=== PATIENT | male | born 1965 | race Caucasian/White ===

== ENCOUNTER 2017-04-17 14:33 | Inpatient (IN) | payer OTHER ==
--- NOTE | 2017-04-17 14:55 | PDOC ---
Rapid Medical Evaluation Time Seen by Provider: 04/17/17 14:51 Medical Evaluation: Allergies Allergy/AdvReac Type Severity Reaction Status Date / Time No Known Allergies Allergy Verified 04/17/17 14:51 04/17/17 14:51 I have performed a brief in-person evaluation of this patient. The patient presents with a chief complaint of: Possible cellulitis to RUE, started on keflex yesterday, took 2 doses. Developed fever today and sent in by his pmd. No trauma. bite PMD: Dr Chiang Pertinent physical exam findings: Febrile to 100 w/ minimal erythema to posterior elbow and medical aspect radiating to arm I have ordered the following:labs The patient will proceed to the ED for further evaluation. Discharge Disposition - Referrals Referrals: Edilma Chiang MD [Primary Care Provider] - - Patient Instructions - Post Discharge Activity
[2017-04-17 15:15] LABS: BASO % 0.3 % (0-2.0); EOS % 1.4 % (0-4.5); HEMATOCRIT 43.1 % (35.4-49); HEMOGLOBIN 14.8 GM/dL (11.7-16.9); LYMPH % 4.9 % (8-40); MCH 29.3 pg (25.7-33.7); MCHC 34.3 g/dl (32.0-35.9); MEAN CELL VOLUME 85.3 fl (80-96); MEAN PLT VOLUME 6.8 fl (7.5-11.1); MONO % 3.7 % (3.8-10.2); NEUT % 89.7 % (42.8-82.8); PLATELET COUNT 315 K/MM3 (134-434); RBC 5.06 M/mm3 (4.00-5.60); WHITE BLOOD COUNT 10.3 K/mm3 (4.0-10.0)
[2017-04-17 15:44] LABS: ALBUMIN 3.6 g/dl (3.4-5.0); ALK PHOS 77 U/L (45-117); ANION GAP 10 (8-16); BILIRUBIN,TOTAL 0.8 mg/dL (0.2-1.0); BLOOD UREA NITROGEN 14 mg/dL (7-18); CALCIUM 8.2 mg/dL (8.5-10.1); CHLORIDE 103 mmol/L (98-107); CO2 23 mmol/L (21-32); CREATININE 1.1 mg/dL (0.7-1.3); GLUCOSE,RANDOM 154 mg/dL (74-106); POTASSIUM 3.7 mmol/L (3.5-5.1); SGOT/AST 15 U/L (15-37); SGPT/ALT 39 U/L (12-78); SODIUM 136 mmol/L (136-145); TOT PROT 7.4 g/dl (6.4-8.2)
[2017-04-17] MEDS ORDERED: CLINDAMYCIN 600MG PREMIX IVPB 600 MG/50 ML BAG IVPB ONE ×2 (17:33→18:34)
--- NOTE | 2017-04-17 18:42 | PDOC ---
History of Present Illness <Marie Flynn - Last Filed: 04/17/17 18:38> - General History Source: Patient Exam Limitations: No Limitations - History of Present Illness Initial Comments: 04/17/17 18:43 Patient is a 50 year old male with a significant past medical history of HTN, Diabetes who presents to the ED with complaints of right forearm pain and swelling that began 2 weeks ago. Patient reports experiencing right forearm swelling and pain 2 weeks ago that he stated started small so i applied ice and took advil. He reports right forearm edema and pain subsided but returned more intense 2 days ago. Patient reports going to PCP office yesterday for same symptoms and was prescribed Cephalexin, but states it made him vomit twice. He states pcp referred him to the ED to get IV antibiotics since he was not tolerating PO. Denies chest pain, SOB. Denies nausea, vomiting. Denies fevers, chills. Denies contact with sick individuals, out of state travel. Denies trauma to affected area. Denies any other symptoms. Allergies: None Social history: No smoking. Social drinker. No illicit drugs. Surgical history: PMD: Dr. Chiang <Ravinder Fox - Last Filed: 04/17/17 18:44> - General Chief Complaint: Redness To Affected Area Stated Complaint: Wound Infection Time Seen by Provider: 04/17/17 14:51 Past History - Past Medical History COPD: No HTN: Yes - Suicide/Smoking/Psychosocial Hx Smoking History: Never smoked Hx Alcohol Use: Yes (socially.) Drug/Substance Use Hx: No Substance Use Type: Alcohol <Marie Flynn - Last Filed: 04/17/17 18:38> <Ravinder Fox - Last Filed: 04/17/17 18:44> - Past Medical History Allergies/Adverse Reactions: Allergies Allergy/AdvReac Type Severity Reaction Status Date / Time No Known Allergies Allergy Verified 04/17/17 14:51 Home Medications: Ambulatory Orders Alprazolam [Xanax] 0.5 mg PO BID PRN #6 tablet 05/28/14 Review of Systems - Review of Systems Able to Perform ROS?: Yes Comments:: 04/17/17 18:44 GENERAL/CONSTITUTIONAL: No fever or chills. No weakness. HEAD, EYES, EARS, NOSE AND THROAT: No change in vision. No ear pain or discharge. No sore throat. CARDIOVASCULAR: No chest pain or shortness of breath. RESPIRATORY: No cough, wheezing, or hemoptysis. GASTROINTESTINAL: No nausea, vomiting, diarrhea or constipation. GENITOURINARY: No dysuria, frequency, or change in urination. MUSCULOSKELETAL: No joint or muscle swelling or pain. No neck or back pain. SKIN: No rash NEUROLOGIC: No headache, vertigo, loss of consciousness, or change in strength/ sensation. ENDOCRINE: No increased thirst. No abnormal weight change. HEMATOLOGIC/LYMPHATIC: No anemia, easy bleeding, or history of blood clots. ALLERGIC/IMMUNOLOGIC: No hives or skin allergy. All Other Systems: Reviewed and Negative <Ravinder Fox - Last Filed: 04/17/17 18:44> *Physical Exam - Vital Signs Last Vital Signs Temp Pulse Resp BP Pulse Ox 101.1 F H 108 H 18 139/84 99 04/17/17 14:50 04/17/17 14:50 04/17/17 14:50 04/17/17 14:50 04/17/17 14:50 <Marie Flynn - Last Filed: 04/17/17 18:38> - Vital Signs Last Vital Signs Temp Pulse Resp BP Pulse Ox 101.1 F H 108 H 18 139/84 99 04/17/17 14:50 04/17/17 14:50 04/17/17 14:50 04/17/17 14:50 04/17/17 14:50 - Physical Exam Comments: 04/17/17 18:44 GENERAL: Awake, alert, and fully oriented, in no acute distress HEAD: No signs of trauma EYES: PERRLA, EOMI, sclera anicteric, conjunctiva clear ENT: Auricles normal inspection, hearing grossly normal, nares patent, oropharynx clear without exudates. Moist mucosa NECK: Normal ROM, supple, no lymphadenopathy, JVD, or masses LUNGS: Breath sounds equal, clear to auscultation bilaterally. No wheezes, and no crackles HEART: Regular rate and rhythm, normal S1 and S2, no murmurs, rubs or gallops ABDOMEN: Soft, nontender, normoactive bowel sounds. No guarding, no rebound. No masses EXTREMITIES: +Asymmetric Forearm. +Right forearm red with area of point tenderness. +Mild erythema. Normal range of motion, no edema. No clubbing or cyanosis. No cords, erythema, or tenderness NEUROLOGICAL: Cranial nerves II through XII grossly intact. Normal speech, normal gait SKIN: Warm, Dry, normal turgor, no rashes or lesions noted. <RuddyRavinder - Last Filed: 04/17/17 18:44> ED Treatment Course - LABORATORY CBC & Chemistry Diagram: 04/17/17 15:10 04/17/17 15:10 - ADDITIONAL ORDERS Additional order review: Laboratory Results 04/17/17 15:10 Sodium 136 Potassium 3.7 Chloride 103 Carbon Dioxide 23 Anion Gap 10 BUN 14 Creatinine 1.1 Creat Clearance w eGFR > 60 Random Glucose 154 H Calcium 8.2 L Total Bilirubin 0.8 AST 15 ALT 39 Alkaline Phosphatase 77 Total Protein 7.4 Albumin 3.6 04/17/17 15:10 RBC 5.06 MCV 85.3 MCHC 34.3 RDW 14.0 MPV 6.8 L Neutrophils % 89.7 H Lymphocytes % 4.9 L Monocytes % 3.7 L Eosinophils % 1.4 Basophils % 0.3 - RADIOLOGY Radiology Studies Ordered: Category Date Time Status DUPLEX VASCUL US-1 ARM [US] Stat Ultrasound 04/17/17 18:18 Ordered <Marie Flynn - Last Filed: 04/17/17 18:38> - LABORATORY CBC & Chemistry Diagram: 04/17/17 15:10 04/17/17 15:10 - ADDITIONAL ORDERS Additional order review: Laboratory Results 04/17/17 15:10 Sodium 136 Potassium 3.7 Chloride 103 Carbon Dioxide 23 Anion Gap 10 BUN 14 Creatinine 1.1 Creat Clearance w eGFR > 60 Random Glucose 154 H Calcium 8.2 L Total Bilirubin 0.8 AST 15 ALT 39 Alkaline Phosphatase 77 Total Protein 7.4 Albumin 3.6 04/17/17 15:10 RBC 5.06 MCV 85.3 MCHC 34.3 RDW 14.0 MPV 6.8 L Neutrophils % 89.7 H Lymphocytes % 4.9 L Monocytes % 3.7 L Eosinophils % 1.4 Basophils % 0.3 - Medications Given in the ED: ED Medications Discontinued Medications Generic Name Dose Route Start Last Admin Trade Name Freq PRN Reason Stop Dose Admin Clindamycin Phosphate 600 mg in 50 mls @ 100 mls/hr 04/17/17 17:33 04/17/17 18:42 Cleocin 600 Mg Premix Ivpb - IVPB 04/17/17 18:02 100 mls/hr ONCE ONE Administration <Ravinder Fox - Last Filed: 04/17/17 18:44> Medical Decision Making - Medical Decision Making 04/17/17 18:38 Pt presents to the ED complaining of RLE erythema and swelling accompanied by fever, nausea and vomiting. Given that he has failed outpatient antibiotics, I feel that he needs to be admitted for IV antibiotics. Labs and vitals are inconsistent with sepsis. Will check lactate and blood CX. Given that his forearms are asymmetric, I am concerned for abscess or infected DVT--no signs of abscess on my bedside US, but will check official US. <Marie Flynn - Last Filed: 04/17/17 18:38> *DC/Admit/Observation/Transfer - Discharge Dispostion Admit: Yes <Marie Flynn - Last Filed: 04/17/17 18:38> - Attestations Scribe Attestion: 04/17/17 18:44 Documentation prepared by Ravinder Fox, acting as emergency medical tech for Marie Flynn MD, MD/DO. <Ravinder Fox - Last Filed: 04/17/17 18:44> Diagnosis at time of Disposition: Cellulitis Qualifiers: Site of cellulitis: extremity Site of cellulitis of extremity: upper extremity Laterality: right Qualified Code(s): L03.113 - Cellulitis of right upper limb - Discharge Dispostion Condition at time of disposition: Good - Referrals Referrals: Edilma Chiang MD [Primary Care Provider] - - Patient Instructions - Post Discharge Activity
--- NOTE | 2017-04-17 20:05 | HP ---
CHIEF COMPLAINT: Right forearm cellulitis HISTORY OF PRESENT ILLNESS 50 year-old male with a PMH significant for HTN and NIDDM. Presents to the ED with right forearm pain and swelling that began two weeks ago. Patient initially self-treated with ice and Advil and the symptoms subsided. He did not notice any break in the skin, bites, or excoriations at the time. Two days ago the pain returned and was more intense. He went to see his PCP Dr. Chiang who prescribed cephalexin but the medication made him vomit twice. Patient returned to Dr. Chiang's office today and had a fever of 102. Dr. Chiang sent him to the ED. PMD: Dr. Chiang ER course was notable for: (1) T 101.1, pulse 108 (2) Clinda x 1 Recent Travel: No PAST MEDICAL HISTORY: Hypertension NIDDM PAST SURGICAL HISTORY: None reported Social History: Smoking: no Alcohol: social Drugs: no Family History: mother 86 "natural causes"; father 86 of lung cancer; sibling a&w; childlren a&w Allergies No Known Allergies Allergy (Verified 04/17/17 14:51) HOME MEDICATIONS: Home Medications Medication Instructions Recorded Atorvastatin Ca [Lipitor] 40 mg PO HS 04/17/17 Icosapent Ethyl [Vascepa] 1 gm PO BID 04/17/17 Metformin HCl 500 mg PO BID 04/17/17 Valsartan 160 mg PO DAILY 04/17/17 REVIEW OF SYSTEMS CONSTITUTIONAL: +ffever Absent: chills, diaphoresis, generalized weakness, malaise, loss of appetite, weight change HEENT: Absent: rhinorrhea, nasal congestion, throat pain, throat swelling, difficulty swallowing, mouth swelling, ear pain, eye pain, visual changes CARDIOVASCULAR: Absent: chest pain, syncope, palpitations, irregular heart rate, lightheadedness , peripheral edema RESPIRATORY: Absent: cough, shortness of breath, dyspnea with exertion, orthopnea, wheezing, stridor, hemoptysis GASTROINTESTINAL: Absent: abdominal pain, abdominal distension, nausea, vomiting, diarrhea, constipation, melena, hematochezia GENITOURINARY: Absent: dysuria, frequency, urgency, hesitancy, hematuria, flank pain, genital pain MUSCULOSKELETAL: +right forearm pain, erythema, swelling Absent: myalgia, arthralgia, joint swelling, back pain, neck pain SKIN: Absent: rash, itching, pallor HEMATOLOGIC/IMMUNOLOGIC: Absent: easy bleeding, easy bruising, lymphadenopathy, frequent infections ENDOCRINE: Absent: unexplained weight gain, unexplained weight loss, heat intolerance, cold intolerance NEUROLOGIC: Absent: headache, focal weakness or paresthesias, dizziness, unsteady gait, seizure, mental status changes, bladder or bowel incontinence PSYCHIATRIC: Absent: anxiety, depression, suicidal or homicidal ideation, hallucinations. PHYSICAL EXAMINATION Vital Signs - 24 hr 04/17/17 14:50 Temperature 101.1 F H Pulse Rate 108 H Respiratory 18 Rate Blood Pressure 139/84 O2 Sat by Pulse 99 Oximetry (%) GENERAL: Awake, alert, and fully oriented, in no acute distress. HEAD: Normal with no signs of trauma. EYES: Pupils equal, round and reactive to light, extraocular movements intact, sclera anicteric, conjunctiva clear. No lid lag. EARS, NOSE, THROAT: Ears normal, nares patent, oropharynx clear without exudates. Moist mucous membranes. NECK: Normal range of motion, supple without lymphadenopathy, JVD, or masses. LUNGS: Breath sounds equal, clear to auscultation bilaterally. No wheezes, and no crackles. No accessory muscle use. HEART: Regular rate and rhythm, normal S1 and S2 without murmur, rub or gallop. ABDOMEN: Soft, nontender, not distended, normoactive bowel sounds, no guarding, no rebound, no masses. No hepatomegaly or splenomegaly. MUSCULOSKELETAL: Normal range of motion at all joints. No bony deformities or tenderness. No CVA tenderness. No tenderness over right elbow, full ROM RUE RIGHT UPPER EXTREMITY: Erythema, swelling, warmth from elbow to wrist posterior RUE. LOWER EXTREMITIES: 2+ pulses, warm, well-perfused. No calf tenderness. No peripheral edema. NEUROLOGICAL: Cranial nerves II-XII intact. Normal speech. Normal gait. Laboratory Results - last 24 hr 04/17/17 04/17/17 15:10 15:10 WBC 10.3 H RBC 5.06 Hgb 14.8 Hct 43.1 MCV 85.3 MCH 29.3 MCHC 34.3 RDW 14.0 Plt Count 315 MPV 6.8 L Neutrophils % 89.7 H Lymphocytes % 4.9 L Monocytes % 3.7 L Eosinophils % 1.4 Basophils % 0.3 Sodium 136 Potassium 3.7 Chloride 103 Carbon Dioxide 23 Anion Gap 10 BUN 14 Creatinine 1.1 Creat Clearance w eGFR > 60 Random Glucose 154 H Calcium 8.2 L Total Bilirubin 0.8 AST 15 ALT 39 Alkaline Phosphatase 77 Total Protein 7.4 Albumin 3.6 ASSESSMENT/PLAN 50 year-old male with a PMH significant for HTN and NIDDM. Admitted for sepsis secondary to right forearm cellulitis. Failed outpatient PO antibiotics. Sepsis likely secondary to right forearm cellulitis r/o septic joint --marked erythema, warmth, swelling to posterior RUE; no tenderness, warmth, or swelling to right elbow, full ROM --febrile to 101, p 108; BP stable; lactic acid wnl --NS x 2L now, then hourly --urine and blood cultures ordered --start Unasyn --CXR pending --Duplex RUE done, pending dictation, r/o DVT --CT right forearm, r/o abscess/collection --elbow xray done, pending dictation; r/o septic joing --ID consult --oxycodone, tylenol PRN for pain and fever Hypertension --hold home Valsartan due to sepsis NIDDM --Novolog sliding scale coverage FEN Fluids: NS @ 125mL/hr Electrolytes: replete as indicated Nutrition: diabetic low sodium DVT prophylaxis: lovenox Visit type - Emergency Visit Emergency Visit: Yes ED Registration Date: 04/17/17 Care time: The patient presented to the Emergency Department on the above date and was hospitalized for further evaluation of their emergent condition. - New Patient This patient is new to me today: Yes Date on this admission: 04/17/17 - Critical Care Critical Care patient: No
[2017-04-17] MEDS ORDERED: SODIUM CHLORIDE 1,000 ML IV STA ×2 (20:26→20:31)
[2017-04-17] MEDS ORDERED: oxyCODONE HCL 5 MG TABLET PO PRN (20:55)
[2017-04-17] MEDS ORDERED: SODIUM CHLORIDE 1,000 ML IV SCH (23:00)
[2017-04-17] MEDS: ATORVASTATIN CA 40 MG TABLET (FP) PO SCH (23:19)
[2017-04-17] MEDS: AMPICILLIN NA/SULBACTAM NA 3 GM in SODIUM CHLORIDE 100 ML IVPB SCH (23:19)
[2017-04-17] MEDS: INSULIN SLIDING SCALE (NOVOLOG) 1 VIAL SQ SCH (23:22)
[2017-04-17] MEDS: SODIUM CHLORIDE 1,000 ML IV SCH (23:23)
[2017-04-17] MEDS: ACETAMINOPHEN 325 MG TABLET (FP) PO PRN (23:30)
[2017-04-17 23:52] VITALS: BMI 38.7
[2017-04-18] MEDS: AMPICILLIN NA/SULBACTAM NA 3 GM in SODIUM CHLORIDE 100 ML IVPB SCH ×2 (02:35→08:45)
[2017-04-18 04:05] LABS: URINE APPEARANCE CLEAR; URINE BILIRUBIN NEGATIVE (NEGATIVE); URINE BLOOD NEGATIVE (NEGATIVE); URINE COLOR YELLOW; URINE GLUCOSE (UA) NEGATIVE (NEGATIVE); URINE KETONE NEGATIVE (NEGATIVE); URINE LEUK ESTERASE NEGATIVE (NEGATIVE); URINE NITRITE NEGATIVE (NEGATIVE); URINE PROTEIN NEGATIVE (NEGATIVE)
[2017-04-18] MEDS: INSULIN SLIDING SCALE (NOVOLOG) 1 VIAL SQ SCH ×4 (06:16→21:20)
[2017-04-18 08:22] LABS: BASO % 0.4 % (0-2.0); EOS % 1.3 % (0-4.5); HEMATOCRIT 39.4 % (35.4-49); HEMOGLOBIN 13.1 GM/dL (11.7-16.9); LYMPH % 15.1 % (8-40); MCH 28.6 pg (25.7-33.7); MCHC 33.2 g/dl (32.0-35.9); MEAN CELL VOLUME 86.1 fl (80-96); MEAN PLT VOLUME 6.9 fl (7.5-11.1); MONO % 7.7 % (3.8-10.2); NEUT % 75.5 % (42.8-82.8); PLATELET COUNT 244 K/MM3 (134-434); RBC 4.57 M/mm3 (4.00-5.60); RDW 13.7 % (11.9-15.9); WHITE BLOOD COUNT 6.5 K/mm3 (4.0-10.0)
[2017-04-18] MEDS ORDERED: PT OWN MED DRAWER 7, Y5N ONE ×2 (08:43→14:10)
[2017-04-18] MEDS: ACETAMINOPHEN 325 MG TABLET (FP) PO PRN (09:11)
[2017-04-18 09:14] LABS: CHLORIDE 103 mmol/L (98-107); POTASSIUM 3.7 mmol/L (3.5-5.1); SODIUM 137 mmol/L (136-145)
[2017-04-18 09:25] LABS: ALBUMIN 3.1 g/dl (3.4-5.0); ALK PHOS 68 U/L (45-117); ANION GAP 9 (8-16); BILIRUBIN,TOTAL 0.8 mg/dL (0.2-1.0); BLOOD UREA NITROGEN 11 mg/dL (7-18); CALCIUM 7.4 mg/dL (8.5-10.1); CO2 25 mmol/L (21-32); CREATININE 0.8 mg/dL (0.7-1.3); GLUCOSE,RANDOM 120 mg/dL (74-106); MAGNESIUM 1.9 mg/dL (1.8-2.4); SGOT/AST 25 U/L (15-37); SGPT/ALT 40 U/L (12-78); TOT PROT 6.4 g/dl (6.4-8.2)
[2017-04-18] MEDS ORDERED: VALSARTAN 160 MG TABLET (UD) PO SCH (10:00)
[2017-04-18] MEDS ORDERED: ENOXAPARIN NA (PORCINE) 40 MG/0.4 ML DISP.SYRIN SQ SCH (10:00)
--- NOTE | 2017-04-18 13:26 | CON.ID ---
Consult Consult Specialty:: infectious disease Referred by:: katey Reason for Consultation:: fever, arm pain - History of Present Illness Chief Complaint: worsening arm pain History of Present Illness: 51 year old man with NIDDM 2 weeks ago developed sudden pain in right forearm/ elbow- iced his arm with improvement no trauma, no scratches 2 days ago started having increased pain and erythema of the arm saw his PMD presecibed keflex- vomitied 3times at home and came to ED yesterday vomiting has resolved +fevers and chills with sweats no diarrhea,no dysurai no cough or SOB no prior history of skin problems lives with girlfriend- no history MRSA uses steam room occasionally at the gym no sick contacts able to bend elbow- has full ROM no injection use duplex, no dvt elbow xray no fracture - History Source History Provided By: Patient Limitations to Obtaining History: No Limitations - Past Medical History Cardio/Vascular: Yes: HTN Endocrine: Yes: Diabetes Mellitus - Alcohol/Substance Use Hx Alcohol Use: Yes (socially.) - Smoking History Smoking history: Never smoked - Social History Usual Living Arrangement: With Significant Other ADL: Independent 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 History of Recent Travel: No Home Medications - Allergies Allergies/Adverse Reactions: Allergies Allergy/AdvReac Type Severity Reaction Status Date / Time No Known Allergies Allergy Verified 04/17/17 14:51 - Home Medications Home Medications: Ambulatory Orders Atorvastatin Ca [Lipitor] 40 mg PO HS 04/17/17 Icosapent Ethyl [Vascepa] 1 gm PO BID 04/17/17 Metformin HCl 500 mg PO BID 04/17/17 Valsartan 160 mg PO DAILY 04/17/17 Family Disease History - Family Disease History Family History: Unremarkable Review of Systems - Review of Systems Constitutional: reports: Chills, Fever, Night Sweats Eyes: reports: No Symptoms HENT: reports: No Symptoms. denies: Difficult Swallowing, Throat Pain Neck: reports: No Symptoms. denies: Tenderness Cardiovascular: reports: No Symptoms. denies: Chest Pain, Edema, Shortness of Breath Respiratory: reports: No Symptoms. denies: Cough Gastrointestinal: reports: No Symptoms. denies: Abdominal Pain, Constipation, Diarrhea Genitourinary: reports: No Symptoms. denies: Dysuria, Flank Pain Musculoskeletal: reports: Other (per HPI) Neurological: reports: No Symptoms Endocrine: reports: No Symptoms, Other (sugars have been ok) Physical Exam Vital Signs: Vital Signs Temperature 101.8 F H 04/18/17 09:03 Pulse Rate 84 04/18/17 09:03 Respiratory Rate 18 04/18/17 09:03 Blood Pressure 117/68 04/18/17 09:03 O2 Sat by Pulse Oximetry (%) 97 04/17/17 23:45 Constitutional: Yes: Well Nourished, No Distress, Calm Eyes: Yes: Conjunctiva Clear HENT: Yes: Atraumatic, Normocephalic. No: Thrush, Tonsillar Exudate Neck: Yes: WNL, Supple, Trachea Midline Cardiovascular: Yes: Regular Rate and Rhythm Respiratory: Yes: Regular, CTA Bilaterally Gastrointestinal: Yes: Normal Bowel Sounds, Soft, Abdomen, Obese ...Rectal Exam: Yes: Deferred Musculoskeletal: Yes: Other (right elbow with from circular area of induration 8 /6 cm no fluctuance with surrounding erythema) Extremities: Yes: WNL Labs: CBC, BMP 04/18/17 07:30 04/18/17 07:30 Imaging - Results Chest X-ray: Report Reviewed X-ray: Report Reviewed Ultrasound: Report Reviewed Problem List - Problems (1) Cellulitis Code(s): L03.90 - CELLULITIS, UNSPECIFIED Qualifiers: Site of cellulitis: extremity Site of cellulitis of extremity: upper extremity Laterality: right Qualified Code(s): L03.113 - Cellulitis of right upper limb (2) Soft tissue abscess Code(s): L02.91 - CUTANEOUS ABSCESS, UNSPECIFIED (3) Diabetes Code(s): E11.9 - TYPE 2 DIABETES MELLITUS WITHOUT COMPLICATIONS Assessment/Plan fevers, soft tissue infection- area of induration, nofluctuance (area marked in ink), no joint involvement vancomycin/unasyn f/u cultures consider ortho evaluation
[2017-04-18] MEDS ORDERED: VANCOMYCIN 1,500 MG in DEXTROSE 5%-WATER - 500 ML IVPB SCH ×2 (13:45→14:15)
[2017-04-18] MEDS ORDERED: VANCOMYCIN 1 GRAM (PRE-DOCKED) 1,000 MG/250 ML BAG IVPB ONE (14:15)
[2017-04-18] MEDS ORDERED: VANCOMYCIN 1,000 MG in DEXTROSE 5%-WATER - 500 ML IVPB ONE (14:30)
[2017-04-18] MEDS ORDERED: VANCOMYCIN 2,000 MG in DEXTROSE 5%-WATER - 500 ML IVPB ONE (14:30)
[2017-04-18] MEDS: AMPICILLIN NA/SULBACTAM NA 1.5 GM in SODIUM CHLORIDE 100 ML IVPB SCH ×2 (16:01→20:30)
--- NOTE | 2017-04-18 17:35 | PN ---
Progress Note, Physician Chief Complaint: Right elbow cellulitis History of Present Illness: NAD IV abx seen by ID febrile-given tylenol IVF - Current Medication List Current Medications: Active Medications Acetaminophen (Tylenol -) 650 mg PO Q6H PRN PRN Reason: PAIN LEVEL 1 - 3 Last Admin: 04/18/17 09:11 Dose: 650 mg Atorvastatin Calcium (Lipitor -) 40 mg PO HS [facility] Last Admin: 04/17/17 23:19 Dose: 40 mg Enoxaparin Sodium (Lovenox -) 40 mg SQ DAILY [facility] Last Admin: 04/18/17 10:17 Dose: 40 mg Sodium Chloride (Normal Saline -) 1,000 mls @ 125 mls/hr IV ASDIR [facility] Last Admin: 04/17/17 23:23 Dose: 125 mls/hr Ampicillin Sodium/Sulbactam (Sodium 1.5 gm/ Sodium Chloride) 100 mls @ 200 mls/ hr IVPB Q6H-IV [facility] Last Admin: 04/18/17 16:01 Dose: 200 mls/hr Vancomycin HCl 1,500 mg/ (Dextrose) 500 mls @ 500 mls/hr IVPB Q12H [facility] Insulin Aspart (Novolog Vial Sliding Scale -) 0 vial SQ ACHS [facility] PRN Reason: Protocol Last Admin: 04/18/17 17:06 Dose: Not Given Oxycodone HCl (Roxicodone -) 5 mg PO Q4H PRN PRN Reason: PAIN LEVEL 6-10 - Objective Vital Signs: Vital Signs Temperature 98.6 F 04/18/17 14:39 Pulse Rate 74 04/18/17 14:39 Respiratory Rate 16 04/18/17 14:39 Blood Pressure 109/74 04/18/17 14:39 O2 Sat by Pulse Oximetry (%) 97 04/18/17 09:00 Constitutional: Yes: Well Nourished, No Distress, Calm Cardiovascular: Yes: Regular Rate and Rhythm Respiratory: Yes: Regular Musculoskeletal: Yes: Muscle Pain (right elbow) Extremities: Yes: Erythema (right elbow) Edema: Yes (right elbow) Neurological: Yes: Alert, Oriented Psychiatric: Yes: Alert, Oriented Labs: CBC, BMP 04/18/17 07:30 04/18/17 07:30 Problem List - Problems (1) Cellulitis Assessment/Plan: -IV abx -ID on board -Tylenol for fever over 100.0F -IVF -Elevation of right arm -BC pending Code(s): L03.90 - CELLULITIS, UNSPECIFIED Qualifiers: Site of cellulitis: extremity Site of cellulitis of extremity: upper extremity Laterality: right Qualified Code(s): L03.113 - Cellulitis of right upper limb (2) Diabetes Assessment/Plan: -insulin sliding scale -diabetic diet Code(s): E11.9 - TYPE 2 DIABETES MELLITUS WITHOUT COMPLICATIONS (3) Soft tissue abscess Code(s): L02.91 - CUTANEOUS ABSCESS, UNSPECIFIED Assessment/Plan see problem list
[2017-04-18] MEDS: ATORVASTATIN CA 40 MG TABLET (FP) PO SCH (21:20)
[2017-04-18] MEDS: HEPARIN NA (PORCINE) 5,000 UNITS/ML 1ML VIAL SQ SCH (21:20)
[2017-04-18] MEDS: SODIUM CHLORIDE 1,000 ML IV SCH (23:00)
[2017-04-19] MEDS: AMPICILLIN NA/SULBACTAM NA 1.5 GM in SODIUM CHLORIDE 100 ML IVPB SCH ×4 (02:09→23:45)
[2017-04-19] MEDS: VANCOMYCIN 1,500 MG in SODIUM CHLORIDE 500 ML IVPB SCH ×2 (03:17→17:37)
[2017-04-19] MEDS ORDERED: VANCOMYCIN 1,500 MG in DEXTROSE 5%-WATER - 500 ML IVPB SCH (04:00)
[2017-04-19] MEDS: INSULIN SLIDING SCALE (NOVOLOG) 1 VIAL SQ SCH ×4 (06:40→23:44)
[2017-04-19] MEDS ORDERED: PT OWN MED DRAWER 7, Y5N ONE (08:44)
[2017-04-19] MEDS: VALSARTAN 80 MG TABLET (UD) PO SCH (09:25)
[2017-04-19] MEDS: HEPARIN NA (PORCINE) 5,000 UNITS/ML 1ML VIAL SQ SCH ×2 (09:26→23:45)
--- NOTE | 2017-04-19 09:37 | PN ---
Progress Note (short form) - Note Progress Note: feels much better today no fevers Vital Signs Period Temp Pulse Resp BP Sys/Shah Pulse Ox Last 24 Hr 98.2 F-99.3 F 68-74 16-20 109-123/67-76 97 cor-rrr llungs clear abd soft,nt ext right forearm area of induration and tenderness is less, less erythema sono- no fluid collection, no dvt CBC, BMP 04/18/17 07:30 04/18/17 07:30 Microbiology 04/18/17 03:40 Urine - Urine Clean Catch Urine Culture - Final NO GROWTH OBTAINED 04/17/17 18:31 Blood - Peripheral Venous Blood Culture - Preliminary NO GROWTH OBTAINED AFTER 24 HOURS, INCUBATION TO CONTINUE FOR 4 DAYS. 04/17/17 18:20 Blood - Peripheral Venous Blood Culture - Preliminary NO GROWTH OBTAINED AFTER 24 HOURS, INCUBATION TO CONTINUE FOR 4 DAYS. a/p soft tissue infection of the forearm- ?developing abscess warm compresses vanco/unasyn f/u vanco level today feeling better diabetes Problem List - Problems (1) Cellulitis Code(s): L03.90 - CELLULITIS, UNSPECIFIED Qualifiers: Site of cellulitis: extremity Site of cellulitis of extremity: upper extremity Laterality: right Qualified Code(s): L03.113 - Cellulitis of right upper limb (2) Soft tissue abscess Code(s): L02.91 - CUTANEOUS ABSCESS, UNSPECIFIED (3) Diabetes Code(s): E11.9 - TYPE 2 DIABETES MELLITUS WITHOUT COMPLICATIONS
--- NOTE | 2017-04-19 19:09 | PN ---
Progress Note, Physician - Current Medication List Current Medications: Active Medications Acetaminophen (Tylenol -) 650 mg PO Q6H PRN PRN Reason: PAIN LEVEL 1 - 3 Last Admin: 04/18/17 09:11 Dose: 650 mg Atorvastatin Calcium (Lipitor -) 40 mg PO HS [facility] Last Admin: 04/18/17 21:20 Dose: 40 mg Heparin Sodium (Porcine) (Heparin -) 5,000 unit SQ BID [facility] Last Admin: 04/19/17 09:26 Dose: 5,000 unit Sodium Chloride (Normal Saline -) 1,000 mls @ 125 mls/hr IV ASDIR [facility] Last Admin: 04/18/17 23:00 Dose: 125 mls/hr Ampicillin Sodium/Sulbactam (Sodium 1.5 gm/ Sodium Chloride) 100 mls @ 200 mls/ hr IVPB Q6H-IV [facility] Last Admin: 04/19/17 14:00 Dose: 200 mls/hr Vancomycin HCl 1,500 mg/ (Sodium Chloride) 500 mls @ 250 mls/hr IVPB Q12H [facility] Last Admin: 04/19/17 17:37 Dose: 250 mls/hr Insulin Aspart (Novolog Vial Sliding Scale -) 0 vial SQ ACHS [facility] PRN Reason: Protocol Last Admin: 04/19/17 17:12 Dose: Not Given Oxycodone HCl (Roxicodone -) 5 mg PO Q4H PRN PRN Reason: PAIN LEVEL 6-10 Valsartan (Diovan -) 80 mg PO DAILY [facility] Last Admin: 04/19/17 09:25 Dose: 80 mg - Objective Vital Signs: Vital Signs Temperature 98.4 F 04/19/17 18:00 Pulse Rate 70 04/19/17 18:00 Respiratory Rate 16 04/19/17 18:00 Blood Pressure 117/75 04/19/17 18:00 O2 Sat by Pulse Oximetry (%) 97 04/19/17 09:00 Labs: CBC, BMP 04/18/17 07:30 04/18/17 07:30 Problem List - Problems (1) Cellulitis Assessment/Plan: -IV abx -ID on board -Tylenol for fever over 100.0F -IVF -Elevation of right arm -BC NEGATIVE TO DATE Code(s): L03.90 - CELLULITIS, UNSPECIFIED Qualifiers: Site of cellulitis: extremity Site of cellulitis of extremity: upper extremity Laterality: right Qualified Code(s): L03.113 - Cellulitis of right upper limb (2) Diabetes Assessment/Plan: BGM Code(s): E11.9 - TYPE 2 DIABETES MELLITUS WITHOUT COMPLICATIONS (3) Soft tissue abscess Code(s): L02.91 - CUTANEOUS ABSCESS, UNSPECIFIED
[2017-04-19] MEDS: ATORVASTATIN CA 40 MG TABLET (FP) PO SCH (23:45)
[2017-04-19] MEDS: SODIUM CHLORIDE 1,000 ML IV SCH (23:46)
[2017-04-19] MEDS: ACETAMINOPHEN 325 MG TABLET (FP) PO PRN (23:47)
[2017-04-20] MEDS: AMPICILLIN NA/SULBACTAM NA 1.5 GM in SODIUM CHLORIDE 100 ML IVPB SCH ×2 (02:48→10:00)
[2017-04-20] MEDS: VANCOMYCIN 1,500 MG in SODIUM CHLORIDE 500 ML IVPB SCH (05:15)
[2017-04-20] MEDS: INSULIN SLIDING SCALE (NOVOLOG) 1 VIAL SQ SCH ×2 (07:01→11:45)
--- NOTE | 2017-04-20 07:57 | PN ---
Progress Note, Physician History of Present Illness: feels better - Current Medication List Current Medications: Active Medications Acetaminophen (Tylenol -) 650 mg PO Q6H PRN PRN Reason: PAIN LEVEL 1 - 3 Last Admin: 04/19/17 23:47 Dose: 650 mg Atorvastatin Calcium (Lipitor -) 40 mg PO HS [facility] Last Admin: 04/19/17 23:45 Dose: 40 mg Heparin Sodium (Porcine) (Heparin -) 5,000 unit SQ BID [facility] Last Admin: 04/19/17 23:45 Dose: 5,000 unit Sodium Chloride (Normal Saline -) 1,000 mls @ 125 mls/hr IV ASDIR [facility] Last Admin: 04/19/17 23:46 Dose: Not Given Ampicillin Sodium/Sulbactam (Sodium 1.5 gm/ Sodium Chloride) 100 mls @ 200 mls/ hr IVPB Q6H-IV [facility] Last Admin: 04/20/17 02:48 Dose: 200 mls/hr Vancomycin HCl 1,500 mg/ (Sodium Chloride) 500 mls @ 250 mls/hr IVPB Q12H [facility] Last Admin: 04/20/17 05:15 Dose: 250 mls/hr Insulin Aspart (Novolog Vial Sliding Scale -) 0 vial SQ ACHS [facility] PRN Reason: Protocol Last Admin: 04/20/17 07:01 Dose: Not Given Oxycodone HCl (Roxicodone -) 5 mg PO Q4H PRN PRN Reason: PAIN LEVEL 6-10 Valsartan (Diovan -) 80 mg PO DAILY [facility] Last Admin: 04/19/17 09:25 Dose: 80 mg - Objective Vital Signs: Vital Signs Temperature 98.4 F 04/19/17 18:00 Pulse Rate 70 04/19/17 18:00 Respiratory Rate 16 04/19/17 18:00 Blood Pressure 117/75 04/19/17 18:00 O2 Sat by Pulse Oximetry (%) 97 04/19/17 09:00 Cardiovascular: Yes: Regular Rate and Rhythm Respiratory: Yes: Regular, CTA Bilaterally Gastrointestinal: Yes: Normal Bowel Sounds, Soft Extremities: Yes: Erythema (less) Problem List - Problems (1) Cellulitis Assessment/Plan: -IV abx -ID on board -Tylenol for fever over 100.0F -IVF -Elevation of right arm -BC NEGATIVE TO DATE Code(s): L03.90 - CELLULITIS, UNSPECIFIED Qualifiers: Site of cellulitis: extremity Site of cellulitis of extremity: upper extremity Laterality: right Qualified Code(s): L03.113 - Cellulitis of right upper limb (2) Diabetes Assessment/Plan: BGM Code(s): E11.9 - TYPE 2 DIABETES MELLITUS WITHOUT COMPLICATIONS (3) Soft tissue abscess Code(s): L02.91 - CUTANEOUS ABSCESS, UNSPECIFIED
[2017-04-20 08:07] LABS: BASO % 0.8 % (0-2.0); EOS % 6.3 % (0-4.5); HEMATOCRIT 39.5 % (35.4-49); HEMOGLOBIN 12.9 GM/dL (11.7-16.9); LYMPH % 29.1 % (8-40); MCH 28.1 pg (25.7-33.7); MCHC 32.7 g/dl (32.0-35.9); MEAN PLT VOLUME 6.9 fl (7.5-11.1); MONO % 8.8 % (3.8-10.2); PLATELET COUNT 271 K/MM3 (134-434); RBC 4.59 M/mm3 (4.00-5.60); RDW 13.8 % (11.9-15.9); WHITE BLOOD COUNT 6.2 K/mm3 (4.0-10.0)
[2017-04-20 08:33] LABS: ANION GAP 7 (8-16); CALCIUM 7.9 mg/dL (8.5-10.1); CHLORIDE 109 mmol/L (98-107); CO2 24 mmol/L (21-32); POTASSIUM 4.1 mmol/L (3.5-5.1); SODIUM 140 mmol/L (136-145)
[2017-04-20 08:44] LABS: ALK PHOS 68 U/L (45-117); BILIRUBIN,TOTAL 0.4 mg/dL (0.2-1.0); BLOOD UREA NITROGEN 9 mg/dL (7-18); CREATININE 0.8 mg/dL (0.7-1.3); GLUCOSE,RANDOM 110 mg/dL (74-106); SGOT/AST 17 U/L (15-37); SGPT/ALT 43 U/L (12-78); TOT PROT 6.3 g/dl (6.4-8.2)
[2017-04-20] MEDS ORDERED: FLU VACCINE QUAD 60 MCG/0.5 ML (MDV 17-18) IM ONE (09:53)
[2017-04-20 09:54] VITALS: BP 117/77; PULSE 61; TEMP 98.4
--- NOTE | 2017-04-20 09:55 | PN ---
Progress Note (short form) - Note Progress Note: no arm pain today feeling better no fevers Vital Signs Period Temp Pulse Resp BP Sys/Shah Pulse Ox Last 24 Hr 98.0 F-98.4 F 66-75 16-20 106-137/71-79 97 cor-rrr lungs decreased bs at bases abd soft, nt ext forearm erythema resolved, induration unchanged but now nontender, no fluctuance CBC, BMP 04/20/17 06:00 04/20/17 06:00 Microbiology 04/17/17 18:31 Blood - Peripheral Venous Blood Culture - Preliminary NO GROWTH OBTAINED AFTER 48 HOURS, INCUBATION TO CONTINUE FOR 3 DAYS. 04/17/17 18:20 Blood - Peripheral Venous Blood Culture - Preliminary NO GROWTH OBTAINED AFTER 48 HOURS, INCUBATION TO CONTINUE FOR 3 DAYS. 04/18/17 03:40 Urine - Urine Clean Catch Urine Culture - Final NO GROWTH OBTAINED sono no abscess a/p soft tissue infection of the forearm- induration- may be early abscess, ortho to see warm compresses cellulitis resolved ortho to see- if ortho agrees-would consider switch to po clindamycin with f/u in the office in next 48-72 hours to see if abscess has developed and needs drainage clindamycin 300 tid for 7 days d/w Dr Chiang diabetes Problem List - Problems (1) Cellulitis Code(s): L03.90 - CELLULITIS, UNSPECIFIED Qualifiers: Site of cellulitis: extremity Site of cellulitis of extremity: upper extremity Laterality: right Qualified Code(s): L03.113 - Cellulitis of right upper limb (2) Soft tissue abscess Code(s): L02.91 - CUTANEOUS ABSCESS, UNSPECIFIED (3) Diabetes Code(s): E11.9 - TYPE 2 DIABETES MELLITUS WITHOUT COMPLICATIONS
[2017-04-20] MEDS ORDERED: PT OWN MED DRAWER 7, Y5N ONE (09:56)
[2017-04-20] MEDS: HEPARIN NA (PORCINE) 5,000 UNITS/ML 1ML VIAL SQ SCH (10:00)
[2017-04-20] MEDS: VALSARTAN 80 MG TABLET (UD) PO SCH (10:00)
--- NOTE | 2017-04-20 11:34 | CON.ORTH ---
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 History of Recent Travel: No Home Medications - Allergies Allergies/Adverse Reactions: Allergies Allergy/AdvReac Type Severity Reaction Status Date / Time No Known Allergies Allergy Verified 04/17/17 14:51 - Home Medications Home Medications: Ambulatory Orders Atorvastatin Ca [Lipitor] 40 mg PO HS 04/17/17 Icosapent Ethyl [Vascepa] 1 gm PO BID 04/17/17 Metformin HCl 500 mg PO BID 04/17/17 Valsartan 160 mg PO DAILY 04/17/17 Physical Exam for Ortho Vital Signs: Vital Signs Temperature 98.4 F 04/20/17 09:54 Pulse Rate 61 04/20/17 09:54 Respiratory Rate 20 04/20/17 09:54 Blood Pressure 117/77 04/20/17 09:54 O2 Sat by Pulse Oximetry (%) 97 04/19/17 21:00 Labs: CBC, BMP 04/20/17 06:00 04/20/17 06:00 - Upper Extremity Arm: Yes: Right, Other (+ ttp, + swelling over lateral forearm, no fluctuance, resolving, full elbow and wrist ROM, nvi) Imaging - Results X-ray: Report Reviewed, Image Reviewed Assessment/Plan 50 year-old male with a PMH significant for HTN and NIDDM. Presents to the ED with right forearm pain and swelling that began two weeks ago. Patient initially self-treated with ice and Advil and the symptoms subsided. He did not notice any break in the skin, bites, or excoriations at the time. Two days ago the pain returned and was more intense. He went to see his PCP Dr. Chiang who prescribed cephalexin but the medication made him vomit twice. Patient returned to Dr. Chiang's office and had a fever of 102. Dr. Chiang sent him to the ED. a/p Right forearm cellulitis resolving No surgical intervention at this time ABx as per ID warm compresses ok to d/c from ortho pov f/u with Dr. Mendez /Thursday of this week
--- NOTE | 2017-04-20 13:17 | DS ---
Physical Examination Vital Signs: Vital Signs Temperature 98.4 F 04/20/17 09:54 Pulse Rate 61 04/20/17 09:54 Respiratory Rate 20 04/20/17 09:54 Blood Pressure 117/77 04/20/17 09:54 O2 Sat by Pulse Oximetry (%) 97 04/19/17 21:00 Labs: CBC, BMP 04/20/17 06:00 04/20/17 06:00 Discharge Summary Reason For Visit: CELLULITIS Current Active Problems Cellulitis (Acute) Diabetes (Acute) Soft tissue abscess (Acute) Condition: Good - Instructions Referrals: Edilma Chiang MD [Primary Care Provider] - 04/23/17 Disposition: HOME - Home Medications Comprehensive Discharge Medication List: Ambulatory Orders Atorvastatin Ca [Lipitor] 40 mg PO HS 04/17/17 Icosapent Ethyl [Vascepa] 1 gm PO BID 04/17/17 Metformin HCl 500 mg PO BID 04/17/17 Valsartan 160 mg PO DAILY 04/17/17 Acetaminophen [Tylenol .Regular Strength -] 650 mg PO Q6H PRN tablet 04/20/17 Clindamycin [Cleocin -] 300 mg PO TID #21 capsule 04/20/17
== END 2017-04-20 13:47 | disposition home or self-care (01) | DRG 603 ==
LOC: JER 14:33 → JERBED 18:43 → J8W 22:37
PROVIDERS: ADMIT Internal Medicine; ATTEND Family Medicine
DX: L03.113 Cellulitis of right upper limb (principal); E11.9 Type 2 diabetes mellitus without complications; I10 Essential (primary) hypertension
CPT/HCPCS: 36415; 71045-TC; 73070-TC-RT; 80048; 80053; 81003; 82962; 83605; 83735; 85025; 85651; 86140; 87040; 87086; 90688; 93971; 99283-25; G0480; J1644